=== PATIENT | female | born 1940 | race Caucasian/White ===

== ENCOUNTER 2019-04-09 11:00 | Inpatient (IN) ==
[2019-04-09] MEDS ORDERED: PERICOLACE PO PRN (15:35)
[2019-04-09] MEDS ORDERED: DULCOLAX PR PRN (15:35)
[2019-04-09] MEDS ORDERED: MOTRIN PO PRN (15:35)
[2019-04-09] MEDS ORDERED: ISOPTIN PO PRN (15:35)
[2019-04-09] MEDS ORDERED: LASIX PO PRN (15:35)
[2019-04-09] MEDS ORDERED: ATROPINE 1 % OPHTH SOLN SL PRN (15:35)
--- NOTE | 2019-04-09 17:00 | HISTORY AND PHYSICAL ---
REASON FOR ADMIT: Respite care. HPI: This is a 78-year-old female with a history of Alzheimer dementia, prior TIA, and GI bleed. She presents as a direct admit for hospice respite care. The daughter is present and gives history and answers questions as the patient is been nonverbal and unable to answer questions. PAST MEDICAL HISTORY: 1. Alzheimer dementia. 2. Transient ischemic attack. 3. GI bleed with the last being in December requiring transfusion. 4. Hypertension. 5. High cholesterol. 6. History of DVT, left leg. 7. Thyroid disease. SOCIAL HISTORY: The daughter denies any alcohol, tobacco or illicit drug use. ALLERGIES: No known drug allergies. HOME MEDICATIONS: A list will be obtained by the nursing staff and once verified will reviewed and restarted as appropriate. REVIEW OF SYSTEMS: Unable to obtain due to the patient's being nonverbal. The daughter denies any recent illness symptoms or change in her condition. PHYSICAL EXAMINATION: GENERAL: This is a 78-year-old female who is lying in the bed in no distress. VITAL SIGNS: Blood pressure is 142/69 with a heart rate of 95, respirations 18, temperature is 98.9 degrees with room air saturations 94-99%. HEENT: Head is normocephalic, atraumatic. Mucous membranes are moist. NECK: Supple. Trachea midline. CARDIOVASCULAR: Regular rate and rhythm. S1 and S2 appreciated. PULMONARY: Breath sounds are clear with no increased work of breathing noted. GASTROINTESTINAL: Abdomen is soft, nondistended with bowel sounds in all 4 quadrants. NEUROLOGIC: The patient is lethargic. She is nonverbal. SKIN: Warm and dry. ASSESSMENT: 1. Hospice respite care. 2. Alzheimer dementia. 3. History of transient ischemic attack. 4. History of gastrointestinal bleed. 5. History of hypothyroid. 6. History of hypertension. PLAN: The patient will be admitted for respite care via [facility] with smitho kerrys q.12 hours p.r.n. Will identify her home medications and continue these as appropriate. We will check a urinalysis. The patient will be placed on aspiration precautions. Further treatments pending hospital course. Dictated by NATALIE Jimenez for Cedric Yanez MD cc: NATALIE Jimenez MD [facility]
[2019-04-09 19:49] LABS: BILIRUBIN URINE NEGATIVE (NEGATIVE); BLOOD URINE NEGATIVE (NEGATIVE); CLARITY CLEAR (CLEAR); COLOR YELLOW; GLUCOSE URINE NEGATIVE (NEGATIVE); KETONE URINE NEGATIVE (NEGATIVE); LEUKOCYTES URINE TRACE (NEGATIVE); NITRITE URINE NEGATIVE (NEGATIVE); PROTEIN URINE NEGATIVE (NEGATIVE); SP GRAVITY URINE 1.005; UROBILINOGEN URINE NORMAL
[2019-04-09 19:51] LABS: URINE BACTERIA 2+ /HFP; URINE EPITHELIAL CELLS <10 /HPF (<10); URINE YEAST NONE SEEN /HPF
[2019-04-09 19:52] LABS: URINE CAST NONE SEEN /LPF; URINE SMALL ROUND CELLS RENAL PRESENT; URINE SOURCE CATH
[2019-04-09] MEDS: SEROQUEL PO SCH (21:45)
[2019-04-10] MEDS: SYNTHROID PO SCH (05:59)
[2019-04-10] MEDS: PROTONIX PO SCH (05:59)
[2019-04-10] MEDS: KEFLEX PO SCH (09:03)
--- NOTE | 2019-04-10 19:16 | PROGRESS NOTE ---
DATE: 04/10/2019 SUBJECTIVE: Patient has no new complaints. PHYSICAL EXAMINATION: Vital Signs: Reviewed. Temperature 99.1, pulse 93, respiratory 18, BP 149/76. General: Patient is pleasant. She is in no distress. HEENT: Normocephalic. Neck: Supple. Cardiovascular: Regular rate. Chest: Clear. Abdomen: Soft. ASSESSMENT: 1. DNR. 2. Hospice respite care. 3. Alzheimer dementia. 4. History of GI bleed. 5. History of hypothyroidism. PLAN: We will continue respite care. Continue to follow. Further orders as needed. cc: Cedric Yanez MD
[2019-04-10] MEDS: SEROQUEL PO SCH (20:41)
[2019-04-11] MEDS: SYNTHROID PO SCH (06:01)
[2019-04-11] MEDS: PROTONIX PO SCH (06:01)
[2019-04-11] MEDS: KEFLEX PO SCH (11:09)
--- NOTE | 2019-04-11 19:41 | PROGRESS NOTE ---
DATE: 04/11/2019 SUBJECTIVE: Patient has no complaints. PHYSICAL EXAMINATION: Vital Signs: Reviewed. Temperature 97.7, pulse 110, respiratory 18, BP 152/78. General: Patient is in no distress. She is lying in the bed. HEENT: Normocephalic. Neck: Supple. Cardiovascular: Regular rate. Chest: Clear. Abdomen: Soft. Extremities: Moves all extremities. ASSESSMENT: 1. Gram-negative vargas UTI. Sensitivities are currently pending. 2. End-stage Alzheimer disease. 3. Hospice respite care. 4. Hypothyroidism. 5. Hypertension. PLAN: We will continue to follow. We will start antibiotics depending off her culture. This may simply be a contaminant. Given her Alzheimer's, she is unable to give any history and does not appear to be having any clinical symptoms currently. cc: Cedric Yanez MD
[2019-04-11] MEDS: SEROQUEL PO SCH (20:43)
[2019-04-12] MEDS: SYNTHROID PO SCH (06:05)
[2019-04-12] MEDS: PROTONIX PO SCH (06:05)
[2019-04-12] MEDS: KEFLEX PO SCH (09:59)
[2019-04-12] MEDS: LEVAQUIN PO SCH (11:49)
--- NOTE | 2019-04-12 14:06 | PROGRESS NOTE ---
DATE: 04/12/2019 SUBJECTIVE: The patient with no complaints. PHYSICAL EXAMINATION: Vital Signs: Reviewed. Temperature 99.7 degrees, pulse 101, respiratory rate 20, and BP 152/78. General: Patient is pleasant. She is in no distress. Patient is awake. She is calm. HEENT: Normocephalic. Neck: Supple. Cardiovascular: Regular rate. No murmurs. Chest: Clear and nonlabored. Abdomen: Soft. Nondistended. Extremities: Moves all extremities. Neurologic: No focal changes. ASSESSMENT: 1. Alzheimer's dementia. 2. Gram-negative vargas urinary tract infection. Await final culture to see if this is a contaminant, and if not which antibiotic to use. 3. Hospice respite care. PLAN: We will continue patient in the hospital. Continue to follow. We will adjust antibiotics as needed. cc: Cedric Yanez MD
[2019-04-12] MEDS: DUONEB (A & A) INH PRN (18:10)
[2019-04-12] MEDS: SEROQUEL PO SCH (20:44)
[2019-04-13] MEDS: SYNTHROID PO SCH (06:20)
[2019-04-13] MEDS: PROTONIX PO SCH (06:20)
[2019-04-13] MEDS: DUONEB (A & A) INH PRN (07:46)
[2019-04-13] MEDS: LEVAQUIN PO SCH (09:02)
--- NOTE | 2019-04-13 17:17 | PROGRESS NOTE ---
DATE: 04/13/2019 SUBJECTIVE: The patient has no complaints. PHYSICAL EXAM: Temperature 99, pulse 92, respiratory rate 18, BP 153/82.General: Patient is awake. She is in no distress. Cardiovascular: Regular rate. Chest: Clear. Abdomen: Soft. Extremities: Moves all extremities. ASSESSMENT: 1. Urinary tract infection. Final sensitivities still pending, Pseudomonas. Currently on Levaquin. 2. Dementia. 3. Hospice, respite care. PLAN: We will continue patient in the hospital today. I believe she is planned to discharge tomorrow. Certainly can do so on Levaquin. cc: Cedric Yanez MD
[2019-04-13] MEDS: SEROQUEL PO SCH (21:35)
[2019-04-14] MEDS: PROTONIX PO SCH (06:16)
[2019-04-14] MEDS: SYNTHROID PO SCH (06:16)
[2019-04-14 07:33] VITALS: BP 153/72
[2019-04-14] MEDS: DUONEB (A & A) INH PRN (07:43)
[2019-04-14] MEDS: LEVAQUIN PO SCH (10:05)
--- NOTE | 2019-04-15 04:48 | DISCHARGE SUMMARY ---
ADMISSION DATE: 04/09/2019 DISCHARGE DATE: 04/14/2019 DISCHARGE DIAGNOSIS: 1. Pseudomonas urinary tract infection sensitive to Levaquin. We will continue this for another 5 days. 2. Alzheimer dementia. 3. Hospice, respite care. 4. Hypothyroidism. 5. Hypertension. CONSULTATIONS: None. PROCEDURES: Possible. BRIEF HOSPITAL COURSE: Patient is a 78-year-old female who presented to the hospital for respite care. Subsequently diagnosed with a urinary tract infection after her urine grew gram-negative rods. Thankfully had an uneventful hospital course. She was admitted and followed. She was placed on antibiotics, subsequently changed to Levaquin p.o. after culture and sensitivities returned. DISPOSITION: Patient will be discharged home. She should continue Levaquin for another 5 days. She will follow up with Hospice, who is currently seeing her. We will continue their current plan. Greater 30 minutes was spent in total care. cc: Cedric Yanez MD
== END 2019-04-14 10:10 | disposition hospice, home (50) | DRG 57 ==
LOC: P.DIRADM 11:00 → P.MEDSURG 11:29
PROVIDERS: ATTEND Family Medicine
CPT/HCPCS: 81001; 87077; 87088; 87186; 94640; 94761; A9270